=== PATIENT | female | born 1980 | race Hispanic/Latino ===

== ENCOUNTER 2016-11-22 14:23 | Emergency (ER) | payer OTHER ==
[~2016-11-22] VITALS: Ht 175.3 cm; Wt 68.9 kg
[2016-11-22] MEDS ORDERED: CYCL10TA PO (15:45)
[2016-11-22] MEDS ORDERED: IBUP-1022 PO (15:45)
[2016-11-22 16:30] VITALS: BP 113/83
== END 2016-11-22 16:50 | disposition home or self-care (01) ==
LOC: M ED 14:23
DX: M43.6 Torticollis (principal)

== ENCOUNTER → 2016-12-12 | Outpatient (CLI) | payer OTHER ==
[~2016-12-12] MED LIST: CYCL10TA PO; IBUP-1022 PO
--- NOTE | 2016-12-12 11:43 | REPMRS ---
Patient History The patient states she had a clinical breast exam in November 2016.Family history of unknown cancer in maternal aunt at age 30. Taking hormonal contraceptives for 3 years. Indicated problem(s): pain in the right breast. Milky discharge for 6 months on right breast with pain on lateral part of brest. Patient states she sometimes has discharge on left breast also. Digital Mammo Diagnostic Bilateral: December 12, 2016 - Exam #: [id number] Bilateral CC and MLO view(s) were taken. Technologist: Mark Rosalesologist FINDINGS: The breast tissue is heterogeneously dense. This may lower the sensitivity of mammography. There is no evidence of cancer on this mammogram. ASSESSMENT: BI-RADS/ACR category 2 mammogram. Benign finding(s). Recommendation Routine screening mammogram of both breasts in 1 year (for women over age 40). This mammogram was interpreted with the aid of an FDA-approved computer-aided dectection system. Electronically Signed By: Curt Valentin MD 12/12/16 [id number]
== END ==
LOC: M RAD 10:59
PROVIDERS: ATTEND Midwife
DX: N64.52 Nipple discharge (principal); N64.4 Mastodynia; Z79.3 Long term (current) use of hormonal contraceptives